=== PATIENT | female | born 1960 | race Caucasian/White ===

== ENCOUNTER 2017-07-17 18:48 | Emergency (ER) | payer MEDICARE, MEDICAID ==
[~2017-07-17] VITALS: Ht 152.4 cm; Wt 65.0 kg
[2017-07-18] MEDS ORDERED: KETOROLAC 60MG/2ML VIAL IM ONE (00:30)
[2017-07-18 01:16] VITALS: BP 132/78
== END 2017-07-18 01:17 | disposition home or self-care (01) ==
LOC: ER 19:10
DX: S33.5XXA Sprain of ligaments of lumbar spine, initial encounter (principal); S83.91XA Sprain of unspecified site of right knee, initial encounter; S00.03XA Contusion of scalp, initial encounter; Y92.410 Unspecified street and highway as the place of occurrence of the external cause; V49.88XA Car occupant (driver) (passenger) injured in other specified transport accidents, initial encounter; Y93.89 Activity, other specified; Y92.89 Other specified places as the place of occurrence of the external cause; Y99.8 Other external cause status
CPT/HCPCS: 70450; 72100; 72131; 73590; 96372; 99284; J1885